=== PATIENT | male | born 1990 | race Caucasian/White ===

== ENCOUNTER 2017-07-05 01:37 | Emergency (ER) | payer OTHER ==
[~2017-07-05] VITALS: Ht 177.8 cm; Wt 94.0 kg
[2017-07-05 01:39] VITALS: BP 126/86
== END 2017-07-05 03:40 | disposition home or self-care (01) ==
LOC: ED 03:15
DX: Z00.00 Encounter for general adult medical examination without abnormal findings (principal); F17.210 Nicotine dependence, cigarettes, uncomplicated
CPT/HCPCS: 99281